=== PATIENT | male | born 1965 | race Caucasian/White ===

== ENCOUNTER 2017-07-11 09:39 | Observation (INO) | payer SELFPAY ==
[2017-07-11] MEDS ORDERED: Nitroglycerin 2% Ointment 1 INCH/1 GM Packet ONE (10:10)
[2017-07-11 10:15] LABS: #Basophils 0.2 thou/uL (0.0-0.2); #Eosinphils 0.3 thou/uL (0.0-0.7); #Lymphocytes 2.8 thou/uL (1.20-3.40); #Monocytes 0.6 thou/uL (0.11-0.59); #Neutrophils 8.1 thou/uL (1.40-6.50); %Basophils 1.6 % (0.0-1.0); %Eosinophils 2.7 % (0.0-10.0); %Lymphocytes 23.4 % (21.0-51.0); %Monocytes 5.1 % (0.0-10.0); %Neutrophils 67.4 % (42.0-75.0); Hemoglobin 16.2 g/dL (14.0-18.0); Mean Corpuscular HGB CONC 34.8 g/dL (32.0-36.0); Mean Corpuscular Hemoglobin 29.5 pg (27.0-31.0); Mean Corpuscular Volume 84.8 fl (80.0-94.0); Mean Platelet Volume 7.3 fL (7.4-10.4); Platelet Count 241 thou/uL (130-400); RBC Distribution Width 12.1 % (11.5-14.5); Red Blood Cell (RBC) Count 5.48 mill/uL (4.70-6.10)
[2017-07-11 10:22] LABS: ALT (SGPT) 23 U/L (8-55); AST (SGOT) 14 U/L (5-34); Albumin 4.2 g/dL (3.5-5.0); Alkaline Phosphatase 67 U/L (40-150); Anion Gap 12 mmol/L (10-20); BUN (Urea Nitrogen) 16 mg/dL (8.4-25.7); Bilirubin, Total 0.5 mg/dL (0.2-1.2); CK (CPK) 98 U/L (30-200); Calc. Creatinine Clearance 0 mL/min (70-130); Calcium 9.1 mg/dL (7.8-10.44); Carbon Dioxide 27 mmol/L (22-29); Chloride 106 mmol/L (98-107); Estimated GFR-MDRD Greater than 90; Globulin 2.6 g/dL (2.4-3.5); Glucose 130 mg/dL (70-105); Lipase 27 U/L (8-78); Protein, Total 6.8 g/dL (6.0-8.3); Sodium 141 mmol/L (136-145)
[2017-07-11 10:24] LABS: CKMB 1.1 ng/mL (0-6.6); Troponin I Less than 0.010 ng/mL (< 0.028)
--- NOTE | 2017-07-11 10:33 | RAD ---
PORTABLE CHEST 1 VIEW: DATE: 07/11/17. TIME: 10:21 a.m. HISTORY: Chest pain. FINDINGS: The heart size is normal. The lungs are expanded without focal areas of consolidation, pneumothorax, or pleural effusions. IMPRESSION: No radiographic evidence of acute cardiopulmonary process. POS: SRIKANTHA
[2017-07-11] MEDS ORDERED: Diabetic Tussin 200 MG/10 ML UDCUP PO PRN (12:16)
[2017-07-11] MEDS ORDERED: Ondansetron HCl/PF 4 MG/2 ML Vial IVP PRN (12:16)
[2017-07-11] MEDS ORDERED: Acetaminophen 325 MG TAB PO PRN (12:16)
[2017-07-11] MEDS ORDERED: Loperamide HCl 2 MG CAP PO PRN (12:16)
[2017-07-11] MEDS ORDERED: Zolpidem Tartrate 5 MG TAB PO PRN (12:16)
[2017-07-11] MEDS ORDERED: Loratadine 10 MG TAB PO PRN (12:16)
[2017-07-11] MEDS ORDERED: HYDROcodone/Acetaminophen 5/325 mg Tablet PO PRN (12:16)
[2017-07-11] MEDS ORDERED: Artificial Tears 18 DROP/0.9 ML EA EYE PRN (12:16)
[2017-07-11] MEDS ORDERED: hydrALAZINE 20 MG/ML VIAL SLOW IVP PRN (12:16)
[2017-07-11] MEDS ORDERED: Nitroglycerin 0.4 MG TAB (25 Tab Bottle) SL PRN (12:16)
[2017-07-11] MEDS ORDERED: Ondansetron ODT 4 MG TAB PO PRN (12:16)
[2017-07-11] MEDS ORDERED: Eucerin (Mineral Oil/Petrolatum,White) 30 gm Jar TOP PRN (12:16)
[2017-07-11] MEDS ORDERED: Senokot 8.6 MG TAB PO PRN (12:16)
[2017-07-11] MEDS ORDERED: Milk Of Magnesia 30 ML UDCUP PO PRN (12:16)
[2017-07-11] MEDS ORDERED: Mag-Al 1200 mg/1200 mg/30 ML UDCUP PO PRN (12:16)
[2017-07-11] MEDS ORDERED: Sodium Chloride 0.65% Nasal 44 ML BOT EA NARE PRN (12:16)
[2017-07-11] MEDS ORDERED: Chloraseptic Spray 180 ml Bottle PO PRN (12:16)
--- NOTE | 2017-07-11 13:31 | HP ---
PRIMARY CARE PHYSICIAN: [facility] call admission. REASON FOR ADMISSION: Chest pain. HISTORY OF PRESENT ILLNESS: A 51-year-old male who has history of hypertension , tobacco abuse disorder, who has intermittent chest pain for the last 2 weeks. He described typical episode left-sided chest pain radiating to left shoulder , associated with dizziness and lightheadedness lasted for few minutes and subsided by itself. This was ongoing for last 2 weeks and there was no particular relation with exertion, food or activity level. Sometimes it was happening at rest, sometimes it was happening at workplace, sometimes it was happening with the work and while walking. Patient reports that because of these symptoms about a week ago, he went to [facility] where he had uncontrolled hypertension and they did not do stress test, but blood pressure was controlled and patient stayed in hospital for 2-3 days and subsequently he was discharged home on medication. The patient was taking his medication, but still he was experiencing similar symptoms without any improvement, and that is why he was concerned about. Today, he was at workplace, he was having chest pain with dizziness and radiation to left shoulder and that is why his manager night told him to go to emergency room for evaluation. The patient denies any palpitations, syncope, palpitations, orthopnea, PND or leg swelling. He denies any calf tenderness. He denies any dizziness, fever or chills. He denies any pleuritic chest pain. He denies any cough. The patient does report family history positive for coronary artery disease. He reports that both parents had MS in their 50s. The patient also has a heavy smoking history about 2 packs per day and he quit smoking about 1 week ago. REVIEW OF SYSTEMS: The following complete review of systems was negative, unless otherwise mentioned in the HPI or below: Constitutional: Weight loss or gain, ability to conduct usual activities. Skin: Rash, itching. Eyes: Double vision, pain. ENT/Mouth: Nose bleeding, neck stiffness, pain, tenderness. Cardiovascular: Palpitations, dyspnea on exertion, orthopnea. Respiratory: Shortness of breath, wheezing, cough, hemoptysis, fever or night sweats. Gastrointestinal: Poor appetite, abdominal pain, heartburn, nausea, vomiting, constipation, or diarrhea. Genitourinary: Urgency, frequency, dysuria, nocturia. Musculoskeletal: Pain, swelling. Neurologic/Psychiatric: Anxiety, depression. Allergy/Immunologic: Skin rash, bleeding tendency. Please see my HPI for pertinent positive and negative. All other review of system reviewed and negative except as mentioned in the HPI. PAST MEDICAL HISTORY: Hypertension, tobacco abuse disorder, dyslipidemia. PAST SURGICAL HISTORY: Reviewed and negative. PAST PSYCHIATRIC HISTORY: Anxiety disorder. FAMILY HISTORY: Both parents had MS in their 50s. No family history of cancer or stroke. SOCIAL HISTORY: Patient is . He smokes about 2 pack per day, but he quit smoking last week. He denies any alcohol abuse. He denies any other illicit drug abuse. He is working as a aircraft sheet metal mechanic. ALLERGIES: No known drug allergy. CURRENT HOME MEDICATIONS: Lipitor 10 mg p.o. daily, metoprolol tartrate 50 mg twice daily, losartan 100 mg p.o. daily, aspirin 81 mg p.o. daily. EMERGENCY ROOM COURSE: Patient is given aspirin and nitropatch. PHYSICAL EXAMINATION: VITAL SIGNS: On arrival, blood pressure 162/97, pulse 58, respiratory rate 19, temperature 98.6, saturation 96% on room air, and weight 83.9 kilograms. GENERAL: Patient is currently alert, awake, no acute distress. HEAD: Normocephalic, atraumatic. EYES: Pupils round, reactive to light. Extraocular muscle intact. ENT: Oropharynx within normal limits. Moist mucous membranes. No oral lesion , no pharyngeal erythema, no exudate. NECK: Supple, no JVD, no thyromegaly, no carotid bruit, no jugular venous distention. LUNGS: Clear to auscultation without any rhonchi or rales. CARDIAC: S1 and S2 regular without any murmur. ABDOMEN: Soft, bowel sounds present, nontender, nondistended. No organomegaly , no mass, no suprapubic tenderness. BACK: Examination unremarkable, no CVA tenderness. EXTREMITIES: Upper extremity passive movements of all joints are normal. Lower extremities: No edema. Good peripheral pulsation, no calf tenderness. SKIN: No skin rash. HEMATOLOGICAL SYSTEM: No lymphadenopathy. PSYCHIATRIC: Normal affect. NEUROLOGIC: The patient is alert and oriented x3. Cranial nerves II-XII intact. Motor and sensation within normal limits. No focal neurological deficit noted. IMAGING DATA AND SIGNIFICANT LABORATORY DATA: 1. EKG showing sinus bradycardia, nonspecific ST-T changes. 2. Chest x-ray based on my review, no acute cardiopulmonary process. 3. CBC: WBC 12.0, hemoglobin 16.2, platelet 241. 4. BMP: Sodium 141, potassium 4.0, chloride 106, carbon dioxide 27, anion gap 12, BUN 16, creatinine 0.82, glucose 130, calcium 9.1. 5. LFT: AST 14, ALT 23, alkaline phosphatase 67, albumin 4.2, lipase 27. CK 98, CK-MB 1.1, troponin I less than 0.010. ASSESSMENT AND PLAN/IMPRESSION: 1. Recurrent chest pain. Patient's chest pain description is atypical. His EKG is nonspecific, cardiac enzymes are negative. He has on and off chest pain for the last 2 weeks and there is no specific relation with food, respiration or activity. At this point, based on his risk factor profile, he is at mild risk for coronary artery disease. He has family history positive for coronary artery disease, smoking history and new diagnosis of hypertension and dyslipidemia. We will keep this patient in hospital. We will do serial cardiac enzymes x3 and we will perform exercise Cardiolite stress test tomorrow morning. Unfortunately, patient had breakfast and coffee today, so we cannot do stress test today. The patient does not have any clinical evidence to support any thromboembolic disorder. 2. Hypertension. We will continue patient's home medication losartan 100 mg p.o. daily, Procardia-XL 30 mg p.o. daily and nitropatch q.8 hourly. 3. Dyslipidemia. We will continue Lipitor 10 mg p.o. at bedtime and check lipid profile tomorrow morning for risk stratification. 4. Tobacco abuse disorder. Smoking cessation counseling given. Healthy lifestyle measures discussed with the patient. 5. Deep venous thrombosis prophylaxis not needed because we are expecting discharge in 24 hours. 6. Gastrointestinal prophylaxis, Pepcid 20 mg p.o. b.i.d. CODE STATUS: Patient is FULL CODE. The patient's is surrogate decision maker. Disposition plan based on clinical course and stress test result likely within 24 hours. Plan of care discussed with the patient in detail. RENATOD
[2017-07-11] MEDS: Nitroglycerin 2% Ointment 1 INCH/1 GM Packet TOP SCH (13:45)
[2017-07-11 13:54] LABS: Troponin I Less than 0.010 ng/mL (< 0.028)
[2017-07-11 16:52] LABS: Troponin I Less than 0.010 ng/mL (< 0.028)
[2017-07-11] MEDS: Famotidine 20 MG TAB PO SCH (20:26)
[2017-07-11] MEDS ORDERED: Atorvastatin Calcium 10 MG TAB PO SCH (21:00)
[2017-07-12] MEDS: Nitroglycerin 2% Ointment 1 INCH/1 GM Packet TOP SCH ×2 (00:05→07:12)
[2017-07-12 05:14] VITALS: TEMP 97.6
[2017-07-12 05:39] VITALS: BMI 28.3
[2017-07-12] MEDS: Famotidine 20 MG TAB PO SCH (07:37)
[2017-07-12] MEDS ORDERED: Aspirin 325 MG TAB PO SCH (09:00)
[2017-07-12] MEDS ORDERED: NIFEdipine XL 30 MG TAB PO SCH (09:00)
[2017-07-12] MEDS ORDERED: Metoprolol Tartrate 50 MG TAB PO SCH (09:00)
[2017-07-12] MEDS ORDERED: Losartan 25 MG TAB PO SCH (09:00)
[2017-07-12] MEDS ORDERED: Regadenoson 0.4 MG/5 ML SYRINGE ONE (11:39)
--- NOTE | 2017-07-12 13:24 | PDOC.PN ---
- Subjective Encounter Start Date: 07/12/17 Encounter Start Time: 13:22 -: old records requested/rev Patient seen and examined for chest pain. No new complaints. No overnight events - Objective Resuscitation Status: Resuscitation Status FULL:Full Resuscitation MAR Reviewed: Yes Vital Signs & Weight: Vital Signs (12 hours) Temp Pulse Resp BP Pulse Ox 07/12/17 07:43 97.6 F 67 20 07/12/17 07:25 97.5 F L 63 16 177/103 H 96 07/12/17 04:03 97.6 F 67 20 173/95 H 96 Weight Weight 192 lb 12.8 oz I&O: 07/11/17 07/12/17 07/13/17 06:59 06:59 06:59 Intake Total 800 15 Balance 800 15 Result Diagrams: 07/11/17 10:00 07/11/17 10:00 Radiology Reviewed by me: Yes EKG Reviewed by me: Yes Phys Exam - Physical Examination Constitutional: NAD HEENT: PERRLA, moist MMs, sclera anicteric Neck: no JVD, supple Respiratory: no wheezing, no rales, no rhonchi Cardiovascular: RRR, no significant murmur, no rub Gastrointestinal: soft, non-tender, no distention, positive bowel sounds Musculoskeletal: no edema, pulses present Neurological: non-focal, normal sensation, moves all 4 limbs Lymphatic: no nodes Psychiatric: normal affect, A&O x 3 Skin: no rash, normal turgor Dx/Plan (1) Chest pain Code(s): R07.9 - CHEST PAIN, UNSPECIFIED Status: Acute (2) Dyslipidemia Code(s): E78.5 - HYPERLIPIDEMIA, UNSPECIFIED Status: Chronic (3) Hypertension Code(s): I10 - ESSENTIAL (PRIMARY) HYPERTENSION Status: Chronic (4) Tobacco abuse Code(s): Z72.0 - TOBACCO USE Status: Chronic - Plan cont current plan of care * medication reviewed as below * symptomatic treatment * stress test normal. Review of Systems - Review of Systems ENT: negative: Ear Pain, Ear Discharge, Nose Pain, Nose Discharge, Nose Congestion, Mouth Pain, Mouth Swelling, Throat Pain, Throat Swelling, Other Respiratory: negative: Cough, Dry, Shortness of Breath, Hemoptysis, SOB with Excertion, Pleuritic Pain, Sputum, Wheezing Cardiovascular: negative: chest pain, palpitations, orthopnea, paroxysmal nocturnal dyspnea, edema, light headedness, other Gastrointestinal: negative: Nausea, Vomiting, Abdominal Pain, Diarrhea, Constipation, Melena, Hematochezia, Other Genitourinary: negative: Dysuria, Frequency, Incontinence, Hematuria, Retention , Other Musculoskeletal: negative: Neck Pain, Shoulder Pain, Arm Pain, Back Pain, Hand Pain, Leg Pain, Foot Pain, Other Skin: negative: Rash, Lesions, Jus, Bruising, Other - Medications/Allergies Allergies/Adverse Reactions: Allergies Allergy/AdvReac Type Severity Reaction Status Date / Time No Known Allergies Allergy Unverified 07/11/17 12:04 Medications: Current Medications Acetaminophen (Tylenol) 650 mg PO Q4H PRN PRN Reason: Headache/Fever or Pain Hydrocodone Bitart/Acetaminophen ([place] 5/325) 1 tab PO Q4H PRN PRN Reason: Moderate Pain (4-6) Last Admin: 07/11/17 20:26 Dose: 1 tab Al Hydroxide/Mg Hydroxide (Maalox) 30 ml PO Q6H PRN PRN Reason: Heartburn or Indigestion Artificial Tears (Tears Naturale) 0 drop EA EYE PRN PRN PRN Reason: Dry Eyes Aspirin (Aspirin) 325 mg PO DAILY [facility] Last Admin: 07/12/17 07:36 Dose: 325 mg Atorvastatin Calcium (Lipitor) 10 mg PO QPM [facility] Last Admin: 07/11/17 20:26 Dose: 10 mg Famotidine (Pepcid) 20 mg PO BID [facility] Last Admin: 07/12/17 07:37 Dose: 20 mg Guaifenesin (Robitussin Sf) 200 mg PO Q4H PRN PRN Reason: Cough Hydralazine HCl (Apresoline) 10 mg SLOW IVP Q4H PRN PRN Reason: Systolic BP > 180 Loperamide HCl (Imodium) 2 mg PO PRN PRN PRN Reason: Diarrhea/Loose Stools Loratadine (Claritin) 10 mg PO DAILYPRN PRN PRN Reason: Sinus Symptoms Losartan Potassium (Cozaar) 100 mg PO DAILY [facility] Last Admin: 07/12/17 07:36 Dose: 100 mg Magnesium Hydroxide (Milk Of Magnesium) 30 ml PO DAILYPRN PRN PRN Reason: Constipation Metoprolol Tartrate (Lopressor) 50 mg PO BID [facility] Last Admin: 07/12/17 13:17 Dose: Not Given Mineral Oil/White Petrolatum (Eucerin Cream) 0 gm TOP BIDPRN PRN PRN Reason: Dry Skin Nifedipine (Procardia Xl) 30 mg PO DAILY [facility] Last Admin: 07/12/17 07:37 Dose: 30 mg Nitroglycerin (Nitrostat) 0.4 mg SL Q5MIN PRN PRN Reason: Chest Pain Nitroglycerin (Nitro-Bid 2% Ointment) 0.5 inch TOP Q8HR [facility] Last Admin: 07/12/17 07:12 Dose: Not Given Ondansetron HCl (Zofran Odt) 4 mg PO Q6H PRN PRN Reason: Nausea/Vomiting Ondansetron HCl (Zofran) 4 mg IVP Q6H PRN PRN Reason: Nausea/Vomiting Phenol (Chloraseptic [place] 180 Ml Bot) 0 ml PO PRN PRN PRN Reason: Sore Throat Senna (Senokot) 2 tab PO HSPRN PRN PRN Reason: Constipation Sodium Chloride (Park Nasal [place] 0.65%) 0 ml EA NARE QIDPRN PRN PRN Reason: Nasal Congestion Sodium Chloride (Flush - Normal Saline) 10 ml IVF Q12HR [facility] Last Admin: 07/12/17 07:48 Dose: Not Given Sodium Chloride (Flush - Normal Saline) 10 ml IVF PRN PRN PRN Reason: Saline Flush Zolpidem Tartrate (Ambien) 5 mg PO HSPRN PRN PRN Reason: Insomnia
--- NOTE | 2017-07-12 13:39 | NM ---
CARDIAC SPECT: CLINICAL HISTORY: 51-year-old male with chest pain, hypertension, family history of coronary artery disease, smoker, dy slipidemia. TECHNIQUE: A myocardial perfusion scan was performed using the single isotope one day protocol with technetium-9 9m sestamibi. 9 mCi were injected intravenously for the rest exam followed by 32 mCi for the stress e xam. Lexiscan-walk stress test was monitored and interpreted by Dr. Vargas. FINDINGS: Homogeneous tracer distribution is seen in the myocardial segments on stress and rest images without fixed or reversible defects. GATED SPECT LVEF: 52%. WALL MOTION EXAM: Normal. IMPRESSION: Normal myocardial perfusion scan. POS: BLANCA
[2017-07-12 14:06] VITALS: BP 149/93
--- NOTE | 2017-07-12 17:09 | DIS ---
DATE OF ADMISSION: 07/11/2017 DATE OF DISCHARGE: 07/12/2017 PRIMARY CARE PHYSICIAN: [facility] call admission. DISCHARGE DISPOSITION: Home. PRIMARY DISCHARGE DIAGNOSIS: Chest pain, ruled out acute coronary syndrome. SECONDARY DISCHARGE DIAGNOSES: Hypertension, dyslipidemia, and tobacco abuse disorder. PRIMARY PROCEDURE/OPERATION: None. RADIOLOGICAL INVESTIGATION: Chest x-ray normal and stress test negative. SIGNIFICANT LABORATORY DATA: Hemoglobin 16.2, creatinine 0.82. Electrolytes normal. LFT normal. C ardiac enzymes negative. LDL 59, lipase 27. DISCHARGE MEDICATIONS: Aspirin 81 mg p.o. daily, Lipitor 10 mg p.o. daily, Cozaar 100 mg p.o. daily, metoprolol tartrate 50 mg p.o. b.i.d., Procardia-XL 30 mg p.o. daily. CONTRAINDICATIONS: None. CODE STATUS: FULL CODE. INPATIENT CONSULTANTS: None. ALLERGIES: No known drug allergy. DISCHARGE PLAN: Post hospital, patient is instructed to keep diary of blood pressure and see primary care physician in 1 week for further adjustment of blood pressure medication. HOSPITAL COURSE: A 51-year-old male who was having recurrent chest pain for the last 2 weeks. His d escription of chest pain was atypical. Lately, he was also suffering from uncontrolled hypertension required admission at [facility]. This admission, his blood pressure was also not well controlled. We advised him to take extra Procardia-XL if needed for high blood pressure. While in hospital, we did serial cardiac enzyme and ruled out acute coronary syndrome. His lipid pro file is within normal limits. We did stress test and stress test came back normal. In this way, we have completely excluded cardiac etiology. We are thinking that his blood pressure m ay be related with his uncontrolled blood pressure and that is why he needs better blood pressure con trol and for that reason we advised him to follow up with primary care physician. Necessary dietary education given. Healthy lifestyle measures discussed with the patient. Smoking cessation counselin g given to him as well. The patient is seen and examined at bedside today. Please see my progress note from today for furthe r detail.
== END 2017-07-12 14:27 | disposition home or self-care (01) ==
LOC: SCSER 09:39 → 2SW 10:40
PROVIDERS: ADMIT Family Medicine; ATTEND Family Medicine
DX: R07.89 Other chest pain (principal); I10 Essential (primary) hypertension; E78.5 Hyperlipidemia, unspecified; F17.200 Nicotine dependence, unspecified, uncomplicated; F41.9 Anxiety disorder, unspecified; Z79.82 Long term (current) use of aspirin; Z79.899 Other long term (current) drug therapy
CPT/HCPCS: 36415; 71045; 78452; 80053; 80061; 82553; 83690; 84484; 85025; 93005; 93017; 94760; A4216; A9500; G0378; J2785